=== PATIENT | female | born 1945 | race Caucasian/White ===

== ENCOUNTER → 2018-06-14 17:29 | Outpatient (CLI) | payer MEDICARE ==
[2014-08-12 14:11] VITALS: BMI 27.3
[~2018-06-14 17:29] MED LIST: CELEBREX 100 M100 MG PO; CYCLOBENZAPRINE10 MG PO; ELIQUIS2.5 MG PO; FISH OIL 1,0001 CA1 PO; METAMUCIL1042 GM PO; MULTIPLE VITAMI1 TA1 PO; PERCOCET 10/3251 TA1 PO; ZYRTEC10 MG PO
== END | disposition home or self-care (01) ==
LOC: D.LABREF 17:29
DX: M17.11 Unilateral primary osteoarthritis, right knee (principal); Z11.8 Encounter for screening for other infectious and parasitic diseases

== ENCOUNTER 2018-07-14 11:32 | Inpatient (IN) | payer MEDICARE ==
[~2018-07-14] VITALS: Ht 170.2 cm; Wt 74.1 kg
[2018-07-19] MEDS ORDERED: GABAPENTIN100 MG PO (11:18)
[2018-07-19] MEDS ORDERED: RESTORIL15 MG PO (11:20)
[2018-07-19] MEDS ORDERED: ARICEPT23 MG (11:21)
[2018-07-19] MEDS ORDERED: [UNRECOGNIZED DRUG - OTHER] PO (11:22)
[2018-07-19] MEDS ORDERED: TOVIAZ8 MG PO (11:22)
[2018-07-19] MEDS ORDERED: MIRALAX17 GM PO (11:24)
[2018-07-19 12:02] LABS: BASOPHILS 0.3 % (0-2); EOSINOPHILS 2.4 % (0-7); HEMATOCRIT 40.7 % (36.0-48.0); HEMOGLOBIN 13.6 g/dL (12-16); IMMATURE GRANULOCYTES 0.2 % (0-5); LYMPHOCYTES 39.7 % (15-50); MCH 30.8 pg (26.0-34.0); MCHC 33.4 g/dL (31.0-37.0); MCV 92.1 fL (80.0-100.0); MEAN PLATELET VOLUME 10.3 fL (7.4-10.4); MONOCYTES 8.9 % (2-11); NEUTROPHILS 48.5 % (40-80); RBC 4.42 10x6/uL (4.00-5.40); RDW 13.6 % (11.5-14.5); WBC 10.7 10x3/uL (4.8-10.8)
[2018-07-19 12:03] LABS: PLATELET COUNT 207 10x3/uL (130-400)
[2018-07-19 12:04] LABS: APPEARANCE CLEAR (CLEAR); BILIRUBIN NEGATIVE (NEGATIVE); COLOR YELLOW (YELLOW); GLUCOSE NEGATIVE (NEGATIVE); KETONE NEGATIVE (NEGATIVE); NITRITE NEGATIVE (NEGATIVE); PROTEIN NEGATIVE (NEGATIVE); UROBILINOGEN NORMAL (NORMAL)
[2018-07-19 12:14] LABS: APTT 26.9 SECONDS (22.8-39.4); INR 0.91 (0.85-1.17); PROTIME 11.8 SECONDS (11.6-15.0)
[2018-07-19 12:15] LABS: CALC OSMOLALITY 284 mosm/kg (275-300); CALCIUM 8.6 mg/dL (8.5-10.1); CARBON DIOXIDE 31.9 mmol/L (21.0-32.0); CHLORIDE - SERUM 102 mmol/L (98-107); CREATININE - SERUM 0.7 mg/dL (0.6-1.3); GLUCOSE 97 mg/dL (74-106); POTASSIUM - SERUM 3.8 mmol/L (3.5-5.1); SODIUM 142 mmol/L (136-145); UREA NITROGEN 18 mg/dL (7-18); eGFR NON AFRICAN AMERICAN 87 mL/min (90-120)
[2018-07-24 08:48] VITALS: BP 129/68; BMI 25.1
--- NOTE | 2018-07-24 14:30 | NUR ---
PT ADMITTED FROM RECOVERY TO ROOM 2211 VIA BED ALERT AND ORIENTED. NO ACUTE DISTRESS NOTED. IV TO LEFT FOREARM, SITE WITHOUT REDNESS OR EDEMA. DRESSING C/D/I TO RIGHT KNEE. ORIENTED TO CL AND BED CONTROLS. DENIES FURTHER NEEDS AT THIS TIME. CL WITHIN REACH. ENCOURAGED TO CALL WITH NEEDS. WILL CONTINUE TO MONITOR.
[2018-07-24 14:46] VITALS: BP 107/71; Ht 170.2 cm; Wt 74.1 kg
[2018-07-24 15:00] VITALS: BP 127/66
[2018-07-24 15:15] VITALS: BP 124/72
[2018-07-24 15:30] VITALS: BP 123/65
--- NOTE | 2018-07-24 18:02 | OP ---
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 PROCEDURE: Revision, total knee arthroplasty (polyethylene exchange). SURGEON: Abhilash Degroot MD FINGERER: SAIGE Walter ANESTHESIA: General laryngeal mask airway. INTRAOPERATIVE COMPLICATIONS: None. SUMMARY OF PATHOLOGIC FINDINGS: Consistent with the preoperative diagnosis as well as preoperative examination, the patient did have instability of the knee in both flexion and extension in this 10-year-old plus knee. All the components of the distal femur and proximal tibia seemed to be in excellent overall alignment and had no evidence of loosening or infection. At this point, the polyethylene tray was removed and trials were undertaken. The removed component was a #13. Trials were taken with a #16 and a #19. It felt to me like the #19 was the most stable. A #19 polyethylene was then put into place with the central post tamped into place as well. The knee was dislocated, taken through range of motion, and found to be much more stable in all planes. A gram of tobramycin, a gram of vancomycin, and a gram of TXA were placed in the knee. The knee was then closed by Sandip Cordoba with #2 Ethibond as did Sandip Cordoba close skin with #1 Vicryl, 2-0 Vicryl, and skin kevin. Sterile dressings were applied. Tourniquet was deflated. The patient was awakened and taken to the recovery room in stable condition. All final needle and sponge counts were correct. TRANSINT:[id number] Voice Confirmation ID: [id number] DOCUMENT ID: [id number] ZANE MEHTA, ABHILASH FERGUSON at 1802 CC: [id number] DICTATION DATE: 07/24/18 9981 FITTING ROOM OPERATOR: 07/24/18 1722 ADM IN [place] [id number] [place] [address]
[2018-07-24 20:00] VITALS: BP 103/55
--- NOTE | 2018-07-24 20:00 | NUR ---
ASSISTED TO GET ON/OFF BED BUITRAGO. LINENS CHANGED. PT IS A&O X 4. REPORTS PAIN 5/10. DAUGHTER AT BEDSIDE. DENIES FURTHER NEEDS AT THIS TIME. WILL CONTINUE TO MONITOR.
[2018-07-25 01:27] VITALS: BP 119/62
--- NOTE | 2018-07-25 03:57 | NUR ---
RESTING QUITELY IN BED NO APPARENT DISTRESS CALL LIGHT IN REACH
[2018-07-25 04:00] VITALS: BP 118/63
[2018-07-25 05:03] LABS: HEMATOCRIT 33.6 % (36.0-48.0); HEMOGLOBIN 11.1 g/dL (12-16); MCH 30.3 pg (26.0-34.0); MCV 91.8 fL (80.0-100.0); MEAN PLATELET VOLUME 11.1 fL (7.4-10.4); RBC 3.66 10x6/uL (4.00-5.40); RDW 13.6 % (11.5-14.5); WBC 11.9 10x3/uL (4.8-10.8)
--- NOTE | 2018-07-25 07:05 | NUR ---
PT RESTING IN BED WITH FAMILY AT BEDSIDE. NO ACUTE DISTRESS NOTED. REPORTS PAIN 3/10 AT THIS TIME TO RIGHT KNEEE. DRESSING TO RIGHT KNEE C/D/I. TOES WARM TO TOUCH, UNABLE TO MOVE TOES AT THIS TIME. IV TO LEFT FOREARM WITH 1/2 NS @ 100 ML/HR INFUSING VIA PUMP. SITE WITHOUT REDNESS OR EDEMA. DENIES FURTHER NEEDS AT THIS TIME. CL WITHIN REACH. ENCOURAGED TO CALL WITH NEEDS. CONTINUE POC.
[2018-07-25 09:15] VITALS: BP 125/64
--- NOTE | 2018-07-25 09:15 | NUR ---
PT RESTING IN BED. NO ACUTE DISTRESS. FAMILY AT BEDSIDE. DENIES NEEDS AT THIS TIME. CL WITHIN REACH. CONTINUE TO MONITOR.
--- NOTE | 2018-07-25 10:55 | NUR ---
PT SITTING UP IN CHAIR AT BEDSIDE. NO ACUTE DISTRESS NOTED. FAMILY AT BEDSIDE. IV SALINE LOC'D AT THIS TIME. DENIES FURTHER NEEDS. CL WITHIN REACH. CONTINUE TO MONITOR.
--- NOTE | 2018-07-25 11:23 | MORECARE ---
CASE MANAGEMENT DISCHARGE SUMMARY PATIENT: NORMA MURILLO UNIT: [id number] ADM DATE: 07/24/18 AGE: 73 : 47 SEX: F ROOM/BED: D.2211 AUTHOR: ROCAEL,DOC PHYSICIAN: REFERRING PHYSICIAN: ABHILASH DEGROOT MD DATE OF SERVICE: 07/25/18 Discharge Plan Patient Name: NORMA MURILLO Facility: [facility]:[place] : 1945 Planned Disposition: Home Anticipated Discharge Date: Discharge Date: Expected LOS: Initial Reviewer: [email or web address] Initial Review Date: 07/24/2018 Generated: 07/25/18 12:23 pm Comments DCP- Discharge Planning Updated by [email or web address]: Paty Moffett on 07/25/18 10:[address] Patient Name: NORMA MURILLO Admission Status: Elective Accout number: [id number] Admission Date: 07-24-2018 : 1945 Admission Diagnosis: Attending: ABHILASH DEGROOT Current LOS: 1 Anticipated DC Date: Planned Disposition: Home Primary Insurance: [employer] Discharge Planning Comments: CM met with patient's daughter, Boby who she lives with to assess discharge planning needs. Boby had multiple questions about discharge. Patient lives with her independently and states that there are not steps to her home. She has a walker and a cane at home. She wants to do physical therapy at [facility] in [place]. The patient has met them and made sure she takes her insurance. The phone number is [phone] and the fax # is [phone]. CM will make an appointment when she is ready for discharge. Her daughter stated that she is still using a bedpan and questions skilled facilities. Information given about skilled vs home health vs OP PT. CM will continue to follow and assist with DC planning as needed Ed Case Manager: Paty Moffett DCPIA - Discharge Planning Initial Assessment Updated by [email or web address]: Paty Moffett on 07/25/18 11:17 am * Is the patient Alert and Oriented? Yes * How many steps to enter\exit or inside your home? * PCP DR JOE IN [place] * Pharmacy [facility] * Preadmission Environment Home with Family * ADLs Independent * Equipment Cane Walker * List name and contact numbers for known caregivers / representatives who currently or will assist patient after discharge: BOBY BLUM (DAUGHTER) [phone] * Verbal permission to speak to the caregivers and representatives has been obtained from the patient. Yes * Community resources currently utilized None * Additional services required to return to the preadmission environment? Yes * Can the patient safely return to the preadmission environment? Yes * Has this patient been hospitalized within the prior 30 days at any hospital? No Patient Name: NORMA MURILLO Page [phone] at 1123 All edits/amendments must be made on the electronic document DICTATION DATE: 07/25/181122 MEDIA EXECUTIVE: NADJA 07/25/181122 RPT#: [id number] DC DATE: STATUS: ADM IN [facility] [address] [place] [address] END OF REPORT
--- NOTE | 2018-07-25 13:23 | NUR ---
PT C/O HEADACHE. 500MG ACETAMINOPHEN PO ADMINISTERED PER MD ORDERS. WILL CONTINUE TO MONITOR.
[2018-07-25 13:37] VITALS: BP 132/54
[2018-07-25 20:00] VITALS: BP 141/66
--- NOTE | 2018-07-25 21:00 | NUR ---
PT IN ROOM, STANDING INFRONT OF BEDSIDE COMMODE WITH WALKER. PT STUMBLING SIDEWAYSAS I ENTERED ROOM, BUT CAUGHT HERSELF WITH HER RIGHT HAND AND HIP ON BED. ASSISTED PT TO STEADY-STANDING POSITION AND ASSISTED HER IN THE BED. INSTRUCTED PT TO USE CALL LIGHT WHEN AMBULATING, EVEN IF JUST FOR STAND-BY ASSIST. PT VERBALIZED UNDERSTANDING. WILL CONTINUE TO MONITOR CLOSELY.
--- NOTE | 2018-07-25 23:30 | NUR ---
PT SITTING UP IN BED, NO SIGNS OF DISTRESS. DENIES NEEDS. AGREE W/ DIRECTOR OF OCCUPATIONAL HEALTH ASSESSMENT. CL IN REACH
[2018-07-26] VITALS: BP 122/64
[2018-07-26 04:00] VITALS: BP 125/65
[2018-07-26 05:00] LABS: HEMATOCRIT 34.9 % (36.0-48.0); HEMOGLOBIN 11.4 g/dL (12-16); MCH 30.3 pg (26.0-34.0); MCHC 32.7 g/dL (31.0-37.0); MCV 92.8 fL (80.0-100.0); MEAN PLATELET VOLUME 10.7 fL (7.4-10.4); RBC 3.76 10x6/uL (4.00-5.40)
[2018-07-26] MEDS ORDERED: ELIQUIS2.5 MG PO (08:50)
[2018-07-26] MEDS ORDERED: HYDROCODON-ACE1 EA10 PO (08:51)
[2018-07-26 10:25] VITALS: BP 143/77
--- NOTE | 2018-07-26 15:56 | MORECARE ---
CASE MANAGEMENT DISCHARGE SUMMARY PATIENT: NORMA MURILLO UNIT: [id number] ADM DATE: 07/24/18 AGE: 73 : [birth year] SEX: F ROOM/BED: D.2211 AUTHOR: ROCAEL,DOC PHYSICIAN: REFERRING PHYSICIAN: ABHILASH DEGROOT MD DATE OF SERVICE: 07/26/18 Discharge Plan Patient Name: NORMA MURILLO Facility: [facility]:[place] : 1945 Planned Disposition: Home Anticipated Discharge Date: Discharge Date: Expected LOS: Initial Reviewer: [email or web address] Initial Review Date: 07/24/2018 Generated: 07/26/18 4:56 pm Comments DCP- Discharge Planning Updated by [email or web address]: Paty Moffett on 07/26/18 2:[address] OP PT IN [place] HAS BEEN SET UP WITH [facility] I SPOKE WITH KIM HER APPOINTMENT IS ON TuesdayJul AT 10:30 AM I FAXED ORDER AND COPY WILL BE GIVEN TO PATIENT IN HER DISCHARGE INSTRUCTIONS CM TO FOLLOW AND ASSIST WITH DC PLANNING NEEDED DCP- Discharge Planning Updated by [email or web address]: Paty Moffett on 07/25/18 10:[address] Patient Name: NORMA MURILLO Admission Status: Elective Accout number: [id number] Admission Date: 07-24-2018 : 1945 Admission Diagnosis: Attending: ABHILASH DEGROOT Current LOS: 1 Anticipated DC Date: Planned Disposition: Home Primary Insurance: [employer] Discharge Planning Comments: CM met with patient's daughter, Boby who she lives with to assess discharge planning needs. Boby had multiple questions about discharge. Patient lives with her independently and states that there are not steps to her home. She has a walker and a cane at home. She wants to do physical therapy at [facility] in [place]. The patient has met them and made sure she takes her insurance. The phone number is [phone] and the fax # is [phone]. CM will make an appointment when she is ready for discharge. Her daughter stated that she is still using a bedpan and questions skilled facilities. Information given about skilled vs home health vs OP PT. CM will continue to follow and assist with DC planning as needed Box Lidder: Paty Moffett DCPIA - Discharge Planning Initial Assessment Updated by [email or web address]: Paty Moffett on 07/25/18 11:17 am * Is the patient Alert and Oriented? Yes * How many steps to enter\exit or inside your home? * PCP DR JOE IN [place] * Pharmacy [facility] * Preadmission Environment Home with Family * ADLs Independent * Equipment Cane Walker * List name and contact numbers for known caregivers / representatives who currently or will assist patient after discharge: BOBY BLUM (DAUGHTER) [phone] * Verbal permission to speak to the caregivers and representatives has been obtained from the patient. Yes * Community resources currently utilized None * Additional services required to return to the preadmission environment? Yes * Can the patient safely return to the preadmission environment? Yes * Has this patient been hospitalized within the prior 30 days at any hospital? No Last DP export: 07/25/18 10:23 a Patient Name: NORMA MURILLO Page 40699 at 1556 All edits/amendments must be made on the electronic document DICTATION DATE: 07/26/181554 SENIOR TECHNICAL SUPPORT ENGINEER: NADAJ 07/26/181554 RPT#: [id number] DC DATE: STATUS: ADM IN [facility] [address] [place] [address] END OF REPORT
[2018-07-26 16:40] VITALS: BP 109/64
[2018-07-26 21:07] VITALS: BP 109/52
--- NOTE | 2018-07-26 21:37 | NUR ---
RESP. EVEN AND UNLABORD CALL LIGHT IN REACH. NO S/S OF DISTRESS.
[2018-07-27 08:18] VITALS: BP 151/70
--- NOTE | 2018-07-27 09:17 | MORECARE ---
CASE MANAGEMENT DISCHARGE SUMMARY PATIENT: NORMA MURILLO UNIT: [id number] ADM DATE: 07/24/18 AGE: 73 : 47 SEX: F ROOM/BED: D.2211 AUTHOR: ROCAEL,DOC PHYSICIAN: REFERRING PHYSICIAN: ABHILASH DEGROOT MD DATE OF SERVICE: 07/27/18 Discharge Plan Patient Name: NORMA MURILLO Facility: [facility]:[place] : 1945 Planned Disposition: Home Anticipated Discharge Date: Discharge Date: Expected LOS: Initial Reviewer: [email or web address] Initial Review Date: 07/24/2018 Generated: 07/27/18 10:17 am Comments DCP- Discharge Planning Updated by [email or web address]: Paty Moffett on 07/27/18 8:[address] Patient is discharging home today, IMM served and explained, copy given to patient. No other needs identified. CM to follow and assist as needed DCP- Discharge Planning Updated by [email or web address]: Paty Moffett on 07/26/18 2:[address] OP PT IN [place] HAS BEEN SET UP WITH [facility] I SPOKE WITH KIM HER APPOINTMENT IS ON TuesdayJul AT 10:30 AM I FAXED ORDER AND COPY WILL BE GIVEN TO PATIENT IN HER DISCHARGE INSTRUCTIONS CM TO FOLLOW AND ASSIST WITH DC PLANNING NEEDED DCP- Discharge Planning Updated by [email or web address]: Paty Moffett on 07/25/18 10:[address] Patient Name: NORMA MURILLO Admission Status: Elective Accout number: [id number] Admission Date: 07-24-2018 : 1945 Admission Diagnosis: Attending: ABHILASH DEGROOT Current LOS: 1 Anticipated DC Date: Planned Disposition: Home Primary Insurance: [employer] Discharge Planning Comments: CM met with patient's daughter, Boby who she lives with to assess discharge planning needs. Boby had multiple questions about discharge. Patient lives with her independently and states that there are not steps to her home. She has a walker and a cane at home. She wants to do physical therapy at [facility] in [place]. The patient has met them and made sure she takes her insurance. The phone number is [phone] and the fax # is [phone]. CM will make an appointment when she is ready for discharge. Her daughter stated that she is still using a bedpan and questions skilled facilities. Information given about skilled vs home health vs OP PT. CM will continue to follow and assist with DC planning as needed Van Loader: Paty Moffett DCPIA - Discharge Planning Initial Assessment Updated by [email or web address]: Paty Moffett on 07/25/18 11:17 am * Is the patient Alert and Oriented? Yes * How many steps to enter\exit or inside your home? * PCP DR JOE IN [place] * Pharmacy [facility] * Preadmission Environment Home with Family * ADLs Independent * Equipment Cane Walker * List name and contact numbers for known caregivers / representatives who currently or will assist patient after discharge: BOBY BLUM (DAUGHTER) [phone] * Verbal permission to speak to the caregivers and representatives has been obtained from the patient. Yes * Community resources currently utilized None * Additional services required to return to the preadmission environment? Yes * Can the patient safely return to the preadmission environment? Yes * Has this patient been hospitalized within the prior 30 days at any hospital? No Coverage Notice Reviewer: [id number] - Paty Moffett Notice Issued Date-Time: 07/27/2018 9:05 Notice Type: IM Discharge Notice Notice Delivered To: Patient Relationship to Patient: Geophysical Support Specialist Name: Delivery Method: HAND - Hand Delivered Taryn Days: Prior Verbal Notification: Recipient Understood Notice: Yes Recipient Signature: Yes Med Rec Note Co-signed by Attending: Coverage Notice Comment: Last DP export: 07/26/18 2:56 p Patient Name: NORMA MURILLO Page 99927 at 0917 All edits/amendments must be made on the electronic document DICTATION DATE: 07/27/18916 BANQUET PILOT: NADJA 07/27/18916 RPT#: [id number] DC DATE: STATUS: ADM IN [facility] [address] [place] [address] END OF REPORT
--- NOTE | 2018-07-28 14:49 | MORECARE ---
CASE MANAGEMENT DISCHARGE SUMMARY PATIENT: NORMA MURILLO UNIT: [id number] ADM DATE: 07/24/18 AGE: 73 : 47 SEX: F ROOM/BED: D.2211 AUTHOR: ROCAEL,DOC PHYSICIAN: REFERRING PHYSICIAN: ABHILASH DEGROOT MD DATE OF SERVICE: 07/28/18 Discharge Plan Patient Name: NORMA MURILLO Facility: [facility]:[place] : 1945 Planned Disposition: Home Anticipated Discharge Date: Discharge Date: 07/27/2018 Expected LOS: 0 Initial Reviewer: [email or web address] Initial Review Date: 07/24/2018 Generated: 07/28/18 3:49 pm Comments DCP- Discharge Planning Updated by [email or web address]: Paty Moffett on 07/27/18 8:[address] Patient is discharging home today, IMM served and explained, copy given to patient. No other needs identified. CM to follow and assist as needed DCP- Discharge Planning Updated by [email or web address]: Paty Moffett on 07/26/18 2:[address] OP PT IN [place] HAS BEEN SET UP WITH [facility] I SPOKE WITH KIM HER APPOINTMENT IS ON TuesdayJul AT 10:30 AM I FAXED ORDER AND COPY WILL BE GIVEN TO PATIENT IN HER DISCHARGE INSTRUCTIONS CM TO FOLLOW AND ASSIST WITH DC PLANNING NEEDED DCP- Discharge Planning Updated by [email or web address]: Paty Moffett on 07/25/18 10:[address] Patient Name: NORMA MURILLO Admission Status: Elective Accout number: [id number] Admission Date: 07-24-2018 : 1945 Admission Diagnosis: Attending: ABHILASH DEGROOT Current LOS: 1 Anticipated DC Date: Planned Disposition: Home Primary Insurance: [id number] Discharge Planning Comments: CM met with patient's daughter, Boby who she lives with to assess discharge planning needs. Boby had multiple questions about discharge. Patient lives with her independently and states that there are not steps to her home. She has a walker and a cane at home. She wants to do physical therapy at [facility] in [place]. The patient has met them and made sure she takes her insurance. The phone number is [phone] and the fax # is [phone]. CM will make an appointment when she is ready for discharge. Her daughter stated that she is still using a bedpan and questions skilled facilities. Information given about skilled vs home health vs OP PT. CM will continue to follow and assist with DC planning as needed Salvage Diver: Paty Moffett DCPIA - Discharge Planning Initial Assessment Updated by [email or web address]: Paty Moffett on 07/25/18 11:17 am * Is the patient Alert and Oriented? Yes * How many steps to enter\exit or inside your home? * PCP DR JOE IN [place] * Pharmacy [facility] * Preadmission Environment Home with Family * ADLs Independent * Equipment Cane Walker * List name and contact numbers for known caregivers / representatives who currently or will assist patient after discharge: BOBY BLUM (DAUGHTER) [phone] * Verbal permission to speak to the caregivers and representatives has been obtained from the patient. Yes * Community resources currently utilized None * Additional services required to return to the preadmission environment? Yes * Can the patient safely return to the preadmission environment? Yes * Has this patient been hospitalized within the prior 30 days at any hospital? No Coverage Notice Reviewer: [email or web address] - Paty Moffett Notice Issued Date-Time: 07/27/2018 9:05 Notice Type: IM Discharge Notice Notice Delivered To: Patient Relationship to Patient: Travel Agent Name: Delivery Method: HAND - Hand Delivered Taryn Days: Prior Verbal Notification: Recipient Understood Notice: Yes Recipient Signature: Yes Med Rec Note Co-signed by Attending: Coverage Notice Comment: Last DP export: 07/27/18 8:17 a Patient Name: NORMA MURILLO Page [phone] at 1449 All edits/amendments must be made on the electronic document DICTATION DATE: 07/28/181448 MEDICAL CASH POSTER: NADJA 07/28/181448 RPT#: [id number] DC DATE:07/27/18 STATUS: DIS IN [facility] [address] [place] [address] END OF REPORT
== END 2018-07-27 13:32 | disposition home or self-care (01) | DRG 467 ==
LOC: D.MS 07-24 08:05 → D.SDCHOLD 07-24 08:05 → D.MS 07-24 13:47 → D.SDCHOLD 07-24 14:00 → D.MS 07-27 13:32
PROVIDERS: ADMIT Orthopaedic Surgery
PROC: 0SRC0LZ Replacement of Right Knee Joint with Medial Unicondylar Synthetic Substitute, Open Approach (ICD-10-PCS; 2018-07-24)
PROC: 0SPC0LZ Removal of Medial Unicondylar Synthetic Substitute from Right Knee Joint, Open Approach (ICD-10-PCS; principal; 2018-07-24 10:00)
DX: T84.032A Mechanical loosening of internal right knee prosthetic joint, initial encounter (principal); G81.91 Hemiplegia, unspecified affecting right dominant side